=== PATIENT | male | born 1955 | race Caucasian/White ===

== ENCOUNTER → 2020-12-31 | Outpatient (CLI) | payer BC ==
[~2020-12-31] MED LIST: ASPIRIN E.C. 8181 MG PO; GLUCOSAMINE & C1 TA1 PO; LIPITOR40 MG PO; MULTIPLE VITAMI1 CAP PO
== END ==
LOC: COL.RAD 09:26
DX: Z12.2 Encounter for screening for malignant neoplasm of respiratory organs (principal); Z87.891 Personal history of nicotine dependence

== ENCOUNTER → 2021-07-04 | Outpatient (CLI) | payer BC | LOC: COL.RAD 09:40 | DX: J98.4 Other disorders of lung (principal); Z87.891 Personal history of nicotine dependence ==